=== PATIENT | male | born 1980 | race Caucasian/White ===

== ENCOUNTER → 2025-04-18 12:17 | Outpatient (CLI) | payer OTHER, SELFPAY | LOC: RESP 12:18 | PROVIDERS: Referring Provider Student in an Organized Health Care Education/Training Program; Visit Provider Student in an Organized Health Care Education/Training Program | DX: J45.20 Mild intermittent asthma, uncomplicated (principal) | CPT/HCPCS: 94060; 94726; 94729 ==